=== PATIENT | female | born 1955 | race Hispanic/Latino ===

== ENCOUNTER → 2022-03-13 | Outpatient (CLI) | payer MEDICARE | LOC: CARD 11:07 | PROVIDERS: ATTEND Internal Medicine | DX: Z12.31 Encounter for screening mammogram for malignant neoplasm of breast (principal); I73.9 Peripheral vascular disease, unspecified | CPT/HCPCS: 77067; 93925 ==

== ENCOUNTER → 2023-05-24 | Outpatient (REF) | payer MEDICARE | LOC: MAMMO 09:05 | PROVIDERS: ATTEND Internal Medicine | DX: Z12.31 Encounter for screening mammogram for malignant neoplasm of breast (principal) | CPT/HCPCS: 77067 ==

== ENCOUNTER → 2025-02-26 | Day surgery (SDC) | payer MEDICARE ==
[2025-02-19 14:03] LABS: BASOPHILS % 0.6 % (0.0-1.0); EOSINOPHILS % 2.5 % (0.0-6.0); LYMPHOCYTES % 47.4 % (18.0-39.1); MONOCYTES % 7.4 % (4.4-11.3); NEUTROPHILS % 41.9 % (38.7-80.0); RED CELL DISTRIBUTION WIDTH 13.5 % (11.7-14.4)
[~2025-02-26] MED LIST: AMLODIPINE BESYL5 MG PO; CELEBREX100 MG PO; LIPITOR10 MG PO; MAGNESIUM OXID400 MG PO; PROPOFOL IV EMULSION 10 MG/ML 20 ML VIAL ONE; VIT E PO
[2025-02-26] MEDS: LACTATED RINGER'S 1,000 ML ONE (08:54)
[2025-02-26 09:21] VITALS: TEMP 97.9
[2025-02-26 09:55] VITALS: BP 116/63; PULSE 57; RESP 16; O2SAT 98
== END | disposition home or self-care (01) ==
LOC: OR 06:58
PROVIDERS: ATTEND Internal Medicine Gastroenterology
DX: Z12.11 Encounter for screening for malignant neoplasm of colon (principal); K64.8 Other hemorrhoids; I10 Essential (primary) hypertension; E78.5 Hyperlipidemia, unspecified; Z78.9 Other specified health status; M06.9 Rheumatoid arthritis, unspecified; Z01.810 Encounter for preprocedural cardiovascular examination; Z01.812 Encounter for preprocedural laboratory examination; Z79.899 Other long term (current) drug therapy; Z68.32 Body mass index [BMI] 32.0-32.9, adult; Z71.3 Dietary counseling and surveillance
CPT/HCPCS: 36415; 85025; 93005; G0121; J2704; J7121; 45378